=== PATIENT | female | born 1975 | race American Indian/Alaskan Native ===

== ENCOUNTER 2019-08-29 05:24 | Emergency (ER) | payer OTHER ==
[2019-08-29 05:31] VITALS: BP 125/85
[2019-08-29] MEDS ORDERED: ACETAMINOPHEN 500 MG TAB PO ONE (06:03)
[2019-08-29] MEDS ORDERED: IBUPROFEN 600 MG TAB PO ONE (06:04)
--- NOTE | 2019-08-29 08:12 | XRay Report ---
RIGHT FOOT 3 VIEWS INDICATION / CLINICAL INFORMATION: Right foot injury. COMPARISON: None available. FINDINGS: BONES and JOINT(S): There is a nondisplaced predominantly transverse fracture through the base of the fifth metatarsal. No dislocation. No significant arthritis. SOFT TISSUES: Mild edema is seen adjacent to the base of the fifth metatarsal. No additional signific ant abnormality. ADDITIONAL FINDINGS: None. IMPRESSION: Acute right fifth metatarsal fracture. Signer Name: Gamaliel Tarango MD Signed: 08/29/2019 8:08 AM Workstation Name: [id number]
--- NOTE | 2019-08-29 08:21 | Emergency Department Report ---
ED Lower Extremity HPI - General Chief Complaint: Extremity Injury, Lower Stated Complaint: RIGHT FOOT PAIN Time Seen by Provider: 08/29/19 07:47 Source: patient Mode of arrival: Ambulatory Limitations: No Limitations - History of Present Illness Initial Comments: 43-year-old female presents emergency department complaining of a foot injury on August 25 slipping between a step and felt a pop followed by swelling and discoloration of the the lateral aspect of her right foot which is continue to progressively worsening since the onset. Pain is dull and throbbing and worse with range of motion and weightbearing. MD Complaint: foot injury -: Gradual Injury: Foot: Right Type of Injury: blunt, inversion Place: home Severity: moderate - Related Data Previous Rx's Medication Instructions Recorded Last Taken Type traMADoL [Ultram] 50 mg PO Q6HR PRN #14 tablet 08/29/19 Unknown Rx Allergies Allergy/AdvReac Type Severity Reaction Status Date / Time No Known Allergies Allergy Unverified 08/29/19 06:02 ED Review of Systems ROS: Stated complaint: RIGHT FOOT PAIN Other details as noted in HPI Comment: All other systems reviewed and negative ED Past Medical Hx - Past Medical History Previous Medical History?: No - Surgical History Past Surgical History?: No - Social History Smoking Status: Current Every Day Smoker Substance Use Type: None - Medications Home Medications: Home Medications Medication Instructions Recorded Confirmed Last Taken Type traMADoL [Ultram] 50 mg PO Q6HR PRN #14 tablet 08/29/19 Unknown Rx ED Physical Exam - General Limitations: No Limitations General appearance: alert, in no apparent distress - Head Head exam: Present: atraumatic, normocephalic - Eye Eye exam: Present: normal appearance, PERRL, EOMI Pupils: Present: normal accommodation - ENT ENT exam: Present: mucous membranes moist - Neck Neck exam: Present: normal inspection - Respiratory Respiratory exam: Present: normal lung sounds bilaterally. Absent: respiratory distress - Cardiovascular Cardiovascular Exam: Present: regular rate, normal rhythm. Absent: systolic murmur, diastolic murmur, rubs, gallop - GI/Abdominal GI/Abdominal exam: Present: soft, normal bowel sounds. Absent: tenderness, guarding - Extremities Exam Extremities exam: Present: normal inspection, tenderness - Expanded Lower Extremity Exam Right 1 - Swelling with ecchymosis 2 - Mild ecchymosis to this region - Back Exam Back exam: Present: normal inspection - Neurological Exam Neurological exam: Present: alert, oriented X3 - Psychiatric Psychiatric exam: Present: normal affect, normal mood - Skin Skin exam: Present: warm, dry, intact, normal color. Absent: rash ED Course Vital Signs 08/29/19 08/29/19 05:27 06:30 Temperature 98.8 F Pulse Rate 98 H Respiratory 18 18 Rate Blood Pressure 125/85 O2 Sat by Pulse 100 Oximetry - Orthopedic Splinting/Casting Injury #1 Side: right Lower Extremity Injury Location: foot Lower Extremity Immobilizer: posterior splint Other Orthopedic Equipment: crutches ED Lower Extremity MDM - Radiology Data Radiology results: report reviewed Referring Physician:CELESTE Beaulieu Name:CAROLYN ROSSPatient ID:[id number] of :[id number]:FemaleAccession:[id number] Date:[id number] Status:Finalized Findings [facility] [address] [place] [address] XRay Report Signed Patient: CAROLYN ROSS MR#: [id number] : 1975 Acct:[id number] Age/Sex: 43 / F ADM Date: 08/29/19 Loc: ED Attending Dr: Ordering Physician: RILEY SCHMITT Date of Service: 08/29/19 Procedure(s): XR foot 3+V RT Accession Number(s): [id number] cc: RILEY SCHMITT Fluoro Time In Minutes: RIGHT FOOT 3 VIEWS INDICATION / CLINICAL INFORMATION: Right foot injury. COMPARISON: None available. FINDINGS: BONES and JOINT(S): There is a nondisplaced predominantly transverse fracture through the base of the fifth metatarsal. No dislocation. No significant arthritis. SOFT TISSUES: Mild edema is seen adjacent to the base of the fifth metatarsal. No additional significant abnormality. ADDITIONAL FINDINGS: None. IMPRESSION: Acute right fifth metatarsal fracture. Signer Name: Gamaliel Tarango MD Signed: 08/29/2019 8:08 AM Workstation Name: [id number] Transcribed By: ANTOINETTE Dictated By: Gamaliel Tarango MD Electronically Authenticated By: Gamaliel Tarango MD Signed Date/Time: 08/29/19807 DD/ 5 TD/TT: - Medical Decision Making 43-year-old female status post slip and fall resulting in a Chanel fracture of the foot placed in a posterior short leg splint she presented to the emergency department with her on sufficient crutches. Pulses 2+ capillary. Are brisk no vascular injury. Plan follow-up with orthopedic Critical care attestation.: If time is entered above; I have spent that time in minutes in the direct care of this critically ill patient, excluding procedure time. ED Disposition Clinical Impression: Chanel fracture Disposition: - TO HOME OR SELFCARE Is pt being admited?: No Does the pt Need Aspirin: No Condition: Stable Instructions: Foot Fracture in Adults (ED) Prescriptions: traMADoL [Ultram] 50 mg PO Q6HR PRN #14 tablet PRN Reason: Pain Referrals: PRIMARY MD REGLA [Primary Care Provider] - 3-5 Days CARLA SUNSHINE MD [Staff Physician] - 3-5 Days
== END 2019-08-29 08:32 | disposition home or self-care (01) ==
LOC: ED 05:24
DX: S92.351A Displaced fracture of fifth metatarsal bone, right foot, initial encounter for closed fracture (principal); F17.200 Nicotine dependence, unspecified, uncomplicated; W01.0XXA Fall on same level from slipping, tripping and stumbling without subsequent striking against object, initial encounter; Y93.89 Activity, other specified; Y92.89 Other specified places as the place of occurrence of the external cause; Y99.8 Other external cause status

== ENCOUNTER 2019-09-21 14:01 | Emergency (ER) | payer OTHER ==
--- NOTE | 2019-09-21 15:28 | XRay Report ---
Right foot 3 views INDICATION: Right foot pain following injury IMPRESSION: Obliquely oriented fracture involving the base of the fifth metatarsal. Signer Name: Mina Marino MD Signed: 09/21/2019 3:23 PM Workstation Name: [id number]
[2019-09-21] MEDS ORDERED: KETOROLAC 10 MG TAB PO ONE (15:33)
--- NOTE | 2019-09-21 15:33 | Emergency Department Report ---
ED Lower Extremity HPI - General Chief Complaint: Extremity Injury, Lower Stated Complaint: KAREN KNOTT THINKS IS REBROKE Time Seen by Provider: 09/21/19 15:05 Source: patient Mode of arrival: Ambulatory Limitations: No Limitations - History of Present Illness Initial Comments: Patient is a 43-year-old -[place] female who recently fractured her r ight foot. She states that she thought by now that the fracture would have been healed so she took her splint off today. She proceeded to get a bath and her foot started hurting her so she comes back to the ER. She has put her splint on albeit incorrectly. She is nonambulatory and complaining of pain. Patient denies any new fall. MD Complaint: foot injury -: Gradual, days(s) Place: home Improves With: nothing Worsens With: weight bearing - Related Data Previous Rx's Medication Instructions Recorded Last Taken Type traMADoL [Ultram] 50 mg PO Q6HR PRN #14 tablet 08/29/19 Unknown Rx Allergies Allergy/AdvReac Type Severity Reaction Status Date / Time No Known Allergies Allergy Unverified 08/29/19 06:02 ED Review of Systems ROS: Stated complaint: KAREN KNOTT THINKS IS REBROKE Other details as noted in HPI Comment: All other systems reviewed and negative ED Past Medical Hx - Past Medical History Previous Medical History?: Yes Additional medical history: chronic back pain - Surgical History Past Surgical History?: Yes Additional Surgical History: tubal ligation - Family History Family history: no significant - Social History Smoking Status: Never Smoker Substance Use Type: None - Medications Home Medications: Home Medications Medication Instructions Recorded Confirmed Last Taken Type traMADoL [Ultram] 50 mg PO Q6HR PRN #14 tablet 08/29/19 Unknown Rx ED Physical Exam - General Limitations: No Limitations General appearance: alert, in no apparent distress - Head Head exam: Present: atraumatic, normocephalic - Eye Eye exam: Present: normal appearance - ENT ENT exam: Present: mucous membranes moist - Neck Neck exam: Present: normal inspection - Respiratory Respiratory exam: Present: normal lung sounds bilaterally. Absent: respiratory distress - Cardiovascular Cardiovascular Exam: Present: regular rate, normal rhythm. Absent: systolic murmur, diastolic murmur, rubs, gallop - GI/Abdominal GI/Abdominal exam: Present: soft, normal bowel sounds - Extremities Exam Extremities exam: Present: normal inspection - Back Exam Back exam: Present: normal inspection - Neurological Exam Neurological exam: Present: alert, oriented X3 - Psychiatric Psychiatric exam: Present: normal affect, normal mood - Skin Skin exam: Present: warm, dry, intact, normal color. Absent: rash ED Course Vital Signs 09/21/19 09/21/19 09/21/19 14:22 14:24 15:59 Temperature 98.7 F 98.7 F 98.4 F Pulse Rate 112 H 126 H 102 H Respiratory 18 18 18 Rate Blood Pressure 124/82 124/82 120/94 O2 Sat by Pulse 98 97 100 Oximetry ED Lower Extremity MDM - Radiology Data Radiology results: report reviewed, image reviewed - Medical Decision Making REPLACED SPLINT EDUCATED NOT TO TAKE IT OFF HR 90 on reexam medicated for pain with toradol NEUROVASC INTACT-dp/pt plus 2; foot warm. DC HOME WITH ORTHO FOLLOW UP Pt verbalizes understanding that she does not need to remove the splint she has crutches from prior visit Vital Signs 09/21/19 09/21/19 14:22 14:24 Temperature 98.7 F 98.7 F Pulse Rate 112 H 126 H Respiratory 18 18 Rate Blood Pressure 124/82 124/82 O2 Sat by Pulse 98 97 Oximetry - Differential Diagnosis Rule out displaced fracture Critical care attestation.: If time is entered above; I have spent that time in minutes in the direct care of this critically ill patient, excluding procedure time. ED Disposition Clinical Impression: Metatarsal fracture, Non-adherence to medical treatment Disposition: DC-01 TO HOME OR SELFCARE Is pt being admited?: No Does the pt Need Aspirin: No Condition: Stable Instructions: Foot Fracture in Adults (ED) Additional Instructions: LEAVE SPLINT ON ICE REST ELEVATE USE CRUTCHES MOTRIN OR TYLENOL FOR PAIN FOLLOW UP WITH ORTHO- FRACTURE IS NOT HEALED Referrals: CARLA SUNSHINE MD [Staff Physician] - 3-5 Days Time of Disposition: 15:37
[2019-09-21 16:01] VITALS: BP 120/94
== END 2019-09-21 16:57 | disposition home or self-care (01) ==
LOC: ED 14:01
DX: S92.351A Displaced fracture of fifth metatarsal bone, right foot, initial encounter for closed fracture (principal); Z98.51 Tubal ligation status; G89.29 Other chronic pain; X58.XXXA Exposure to other specified factors, initial encounter; Y93.89 Activity, other specified; Y92.89 Other specified places as the place of occurrence of the external cause; Y99.8 Other external cause status

== ENCOUNTER 2021-05-09 10:09 | Emergency (ER) | payer OTHER ==
--- NOTE | 2021-05-09 10:54 | XRay Report ---
CHEST 2 VIEWS INDICATION / CLINICAL INFORMATION: Chest and abdominal pain since yesterday. Congestion and dry cough. COMPARISON: None available. FINDINGS: SUPPORT DEVICES: None. HEART / MEDIASTINUM: No significant abnormality. LUNGS / PLEURA: No significant pulmonary abnormality. No significant pleural effusion. No pneumothora x. ADDITIONAL FINDINGS: No significant additional findings. IMPRESSION: 1. No acute abnormality of the chest. Signer Name: Gamaliel Tarango MD Signed: 05/09/2021 10:49 AM Workstation Name: [id number]
[2021-05-09] MEDS ORDERED: KETOROLAC 30 MG/1 ML INJ IV ONE (11:33)
[2021-05-09] MEDS ORDERED: SODIUM CHLORIDE 0.9% 1000 ML 1,000 ML IV ONE (11:33)
[2021-05-09] MEDS ORDERED: FAMOTIDINE 20 MG TAB PO ONE (11:33)
[2021-05-09] MEDS ORDERED: ONDANSETRON 4 MG/2 ML INJ IV ONE (11:33)
--- NOTE | 2021-05-09 11:37 | Emergency Department Report ---
ED Chest Pain HPI - General Chief Complaint: Chest Pain Stated Complaint: ABD, HEAD, BACK & CHEST HURT Time Seen by Provider: 05/09/21 11:15 Source: patient Mode of arrival: Ambulatory Limitations: No Limitations - History of Present Illness Initial Comments: 45-year-old female who denies any significant past medical history presents to the ER today with complaints of chest pain and epigastric pain. Patient states that yesterday she started with substernal chest pain and epigastric discomfort. Patient states that the pain has been constant. She describes as a pressure type pain. She reports associated nausea but no vomiting. She reports associ ated dry cough, rhinorrhea and shortness of breath. She states her last bowel movement was yesterday and normal. She denies any diarrhea, melena or hematochezia. She states that she is currently on her menstrual cycle. She reports no UTI symptoms or any abnormal vaginal symptoms. She denies any abdominal surgeries in the past. She denies any alcohol abuse or illicit drug use. She does smoke tobacco. MD Complaint: chest pain, other (epigastric pain) -: Gradual, days(s) (1) - Related Data Previous Rx's Medication Instructions Recorded Last Taken Type traMADoL [Ultram] 50 mg PO Q6HR PRN #14 tablet 08/29/19 Unknown Rx Famotidine [Pepcid] 20 mg PO BID #30 tablet 05/09/21 Unknown Rx Ondansetron [Zofran Odt] 4 mg PO Q8HR #12 tab.rapdis 05/09/21 Unknown Rx Pantoprazole [Protonix] 40 mg PO QDAY #30 tablet 05/09/21 Unknown Rx cephALEXin [Keflex] 500 mg PO Q6HR #40 capsule 05/09/21 Unknown Rx Allergies Allergy/AdvReac Type Severity Reaction Status Date / Time No Known Allergies Allergy Verified 05/09/21 10:25 Heart Score - HEART Score History: Slightly suspicious EKG: Normal Age: < 45 Risk factors: 1-2 risk factors Troponin: < normal limit HEART Score: 1 - EKG Read Time Time EKG Completed: 10:29 EKG Read Time: 10:33 - Critical Actions Critical Actions: 0-3 pts:0.9-1.7%risk of adverse cardiac event.Candidate for discharge ED Review of Systems ROS: Stated complaint: ABD, HEAD, BACK & CHEST HURT Other details as noted in HPI Comment: All other systems reviewed and negative Constitutional: denies: chills, fever Eyes: denies: eye pain, eye discharge, vision change ENT: other (Rhinorrhea). denies: ear pain, throat pain, dental pain, hearing loss, epistaxis, congestion Respiratory: cough, shortness of breath. denies: orthopnea, SOB with exertion, SOB at rest, stridor, wheezing Cardiovascular: chest pain Gastrointestinal: nausea. denies: abdominal pain, vomiting, diarrhea, constipation, hematemesis, hematochezia Genitourinary: denies: urgency, dysuria, frequency, hematuria, discharge, abnormal menses, dyspareunia Musculoskeletal: denies: back pain, joint swelling, arthralgia Skin: denies: rash, lesions, change in color, change in hair/nails, pruritus Neurological: denies: headache, weakness, numbness, paresthesias, confusion, abnormal gait, vertigo Psychiatric: denies: anxiety, depression, auditory hallucinations, visual hallucinations, homicidal thoughts, suicidal thoughts ED Past Medical Hx - Past Medical History Additional medical history: chronic back pain - Surgical History Additional Surgical History: tubal ligation - Social History Smoking Status: Never Smoker Substance Use Type: None - Medications Home Medications: Home Medications Medication Instructions Recorded Confirmed Last Taken Type traMADoL [Ultram] 50 mg PO Q6HR PRN #14 tablet 08/29/19 Unknown Rx Famotidine [Pepcid] 20 mg PO BID #30 tablet 05/09/21 Unknown Rx Ondansetron [Zofran Odt] 4 mg PO Q8HR #12 tab.rapdis 05/09/21 Unknown Rx Pantoprazole [Protonix] 40 mg PO QDAY #30 tablet 05/09/21 Unknown Rx cephALEXin [Keflex] 500 mg PO Q6HR #40 capsule 05/09/21 Unknown Rx ED Physical Exam - General Limitations: No Limitations General appearance: alert, in no apparent distress - Head Head exam: Present: atraumatic, normocephalic, normal inspection - Eye Eye exam: Present: normal appearance, PERRL, EOMI Pupils: Present: normal accommodation - ENT ENT exam: Present: normal exam, mucous membranes dry - Neck Neck exam: Present: normal inspection, full ROM. Absent: meningismus - Respiratory Respiratory exam: Present: normal lung sounds bilaterally. Absent: respiratory distress, wheezes, rales, rhonchi - Cardiovascular Cardiovascular Exam: Present: regular rate, normal rhythm, normal heart sounds - GI/Abdominal GI/Abdominal exam: Present: soft, tenderness (Mild epigastric tenderness without guarding or rebound). Absent: distended, guarding, rebound - Neurological Exam Neurological exam: Present: alert, oriented X3, CN II-XII intact, normal gait - Psychiatric Psychiatric exam: Present: normal affect, normal mood - Skin Skin exam: Present: intact ED Course Vital Signs 05/09/21 10:24 Temperature 98.3 F Pulse Rate 85 Respiratory 18 Rate Blood Pressure 122/86 O2 Sat by Pulse 100 Oximetry ED Medical Decision Making - Lab Data Result diagrams: 05/09/21 11:04 05/09/21 11:04 - EKG Data EKG shows normal: sinus rhythm Rate: normal (78) - EKG Data Interpretation: normal EKG 05/09/21 15:52 Repeat EKG showed normal sinus rhythm with a heart rate of 68. No signs of any changes compared to the first EKG. No STEMI or significant dysrhythmia or acute ischemic changes. - Medical Decision Making CBC and CMP unremarkable. hCG is negative. Urinalysis is concerning for UTI. Reflex culture ordered by labs are pending. Chest x-ray shows nothing acute. Patiently currently resting comfortably on the recliner and sleeping. She is easily arousable. She is neurologically intact with a normal gait. She had a nonsurgical abdominal exam. She was not in any acute respiratory or pain distress. Her vital signs are stable and she is hemodynamically intact. Patient patient history and physical exam are current condition and work-up does not suggest that patient has unstable angina, aortic dissection, she has a PERC score of 0 and therefore very low suspicion for PE, and she does not have a surgical abdominal exam and therefore the very low suspicion that this is related to cholecystitis, bowel obstruction, appendicitis or any other emergent conditions warranting additional testing, specialist consult or admission at this time. Patient will be treated for her UTI with antibiotics, just in case her epigastric pain/substernal chest pain could be related to gastritis she will be started on Pepcid and Protonix. Discussed all results with patient. Discussed suspected diagnosis and treatment plan with patient. She will be given referral information to local PCP for continued follow-up. Patient expressed understanding of all instructions and agree with plan. Patient stable at time of discharge. Critical care attestation.: If time is entered above; I have spent that time in minutes in the direct care of this critically ill patient, excluding procedure time. ED Disposition Clinical Impression: Nonspecific chest pain, Epigastric pain, UTI (urinary tract infection) Disposition: HOME / SELF CARE / HOMELESS Is pt being admited?: No Does the pt Need Aspirin: No Condition: Stable Instructions: Gastritis, Adult, [id number], Abdominal Pain, Adult, Nonspecific Chest Pain, Adult, Urinary Tract Infection, Adult Additional Instructions: I recommend that you take the keflex as prescribed and to completion. Take the Pepcid and protonix as prescribed, this will help your epigastric abdominal pain, which could related to gastritis versus peptic ulcer disease versus GERD. Take the zofran as needed for nausea/vomiting. I do recommend close follow-up with primary care doctor listed discharge instructions for further evaluation. Return to the ER if at any point your symptoms worsens in any way. Prescriptions: cephALEXin [Keflex] 500 mg PO Q6HR #40 capsule Famotidine [Pepcid] 20 mg PO BID #30 tablet Pantoprazole [Protonix] 40 mg PO QDAY #30 tablet Ondansetron [Zofran Odt] 4 mg PO Q8HR #12 tab.moi Referrals: PRIMARY CARE, [Primary Care Provider] - 3-5 Days Forms: Work/School Release Form(ED) Time of Disposition: 15:09
[2021-05-09 12:15] LABS: Bacteria,Urine 1+ /HPF (Negative); Bilirubin,Urine NEG (Negative); Blood,Urine SM (Negative); Color,Urine Yellow (Yellow); Mucus,Urine 3+ /HPF
[2021-05-09 12:16] LABS: Basophils % (Auto) 0.7 % (0.0-1.8); Eosinophils # (Auto) 0.1 K/mm3 (0.0-0.4); Hematocrit 40.7 % (30.3-42.9); Lymphocytes # (Auto) 1.9 K/mm3 (1.2-5.4); Mean Corpuscular HGB Conc 32 % (30-34); Mean Corpuscular Volume 95 fl (79-97); Monocytes # (Auto) 0.5 K/mm3 (0.0-0.8); Monocytes % (Auto) 8.8 % (0.0-7.3); Platelet Count 337 K/mm3 (140-440); Red Blood Count 4.28 M/mm3 (3.65-5.03); Red Cell Distribution Width 14.9 % (13.2-15.2)
--- NOTE | 2021-05-09 12:28 | Electrocardiograph Report ---
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
[2021-05-09 12:40] LABS: Alanine Aminotransferase 8 units/L (7-56); BUN/Creatinine Ratio 14; Blood Urea Nitrogen 11 mg/dL (7-17); Calcium 9.2 mg/dL (8.4-10.2); Hemolysis Index 8
[2021-05-09 16:08] VITALS: BP 136/76
--- NOTE | 2021-05-10 10:34 | Electrocardiograph Report ---
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
== END 2021-05-09 16:13 | disposition home or self-care (01) ==
LOC: ED 10:09
DX: R07.9 Chest pain, unspecified (principal); R10.13 Epigastric pain; N39.0 Urinary tract infection, site not specified
CPT/HCPCS: 36415; 71046; 80053; 81001; 83690; 84484; 84703; 85025; 87086; 93005; 96361; 96374; 96375; 99284; J1885; J2405; J7030; Q0162